=== PATIENT | female | born 1990 | race Caucasian/White ===

== ENCOUNTER 2022-09-05 08:49 | Emergency (ER) | payer SELFPAY ==
[2022-09-05] MEDS ORDERED: Iopamidol 300 61% 100 ML VIAL FS ONE (09:12)
[2022-09-05 10:55] LABS: #Eosinphils 0.1 10x3/uL (0.0-0.5); #Monocytes 0.6 10x3/uL (0.0-1.1); #Neutrophils 7.9 10x3/uL (1.5-8.4); %Basophils 0.4 % (0.0-2.0); %Eosinophils 1.1 % (0.0-6.0); %Lymphocytes 19.9 % (18.0-47.0); %Monocytes 5.8 % (0.0-10.0); %Neutrophils 72.3 % (40.0-75.0); Hemoglobin 14.5 g/dL (12.0-15.5); Mean Corpuscular HGB CONC 34.1 g/dL (32.0-36.0); Mean Corpuscular Volume 90.8 fl (81.6-98.3); Mean Platelet Volume 11.1 fl (7.4-10.4); Platelet Count 250 10x3/uL (150-450); RBC Distribution Width 11.4 % (11.5-14.5); Red Blood Cell (RBC) Count 4.68 10x6/uL (3.90-5.03); White Blood Cell (WBC) Count 10.9 10x3/uL (3.5-10.5)
[2022-09-05 11:00] LABS: Bilirubin Neg (Negative); Blood, Urine 25 (Negative); Clarity Slightly Cloudy (Clear); Glucose, Urine (Dipstick) Normal (Negative); Ketone, Urine 5 mg/dL (Negative); Leukocyte Negative (Negative); Nitrite Negative (Negative); Protein, Urine (Dipstick) 15 mg/dl (Neg-Trace); Specific Gravity, Urine 1.015 (1.005-1.030); Urobilinogen Normal mg/dL (Less than 2); pH, Urine 6.5 (5.0-9.0)
[2022-09-05 11:04] LABS: Pregnancy Test - Urine (BHCG) Negative (Negative); Pregu Control Background? CLEAR/WHITE (CLR/WHITE); Pregu Control Bar Appear? YES (CONTROL BAR); Specific Gravity 1.015 (1.002-1.036)
[2022-09-05] MEDS ORDERED: Ondansetron PF 4 MG/2 ML Vial ONE (11:09)
[2022-09-05 11:10] LABS: Bacteria/HPF 1+ HPF (None Seen); Mucous/LPF 1+ LPF (<2+); RBC/HPF 0-3 HPF (0-3); WBC/HPF 0-3 HPF (0-3)
[2022-09-05] MEDS ORDERED: Morphine 10 MG/ML VIAL ONE (11:10)
[2022-09-05 11:18] LABS: ALT (SGPT) 22 U/L (8-55); AST (SGOT) 17 U/L (5-34); Albumin 4.4 g/dL (3.5-5.0); Alkaline Phosphatase 62 U/L (40-110); Anion Gap 14 mmol/L (10-20); BUN (Urea Nitrogen) 15 mg/dL (7.0-18.7); Bilirubin, Total 0.6 mg/dL (0.2-1.2); Calc. Creatinine Clearance 0 mL/min (70-130); Calcium 9.3 mg/dL (7.8-10.44); Carbon Dioxide 25 mmol/L (22-29); Chloride 103 mmol/L (98-107); Estimated GFR 94; Globulin 3.1 g/dL (2.4-3.5); Glucose 93 mg/dL (70-105); Lipase 17 U/L (8-78); Potassium 3.7 mmol/L (3.5-5.1); Protein, Total 7.5 g/dL (6.0-8.3); Sodium 138 mmol/L (136-145)
[2022-09-05] MEDS ORDERED: Piperacillin/Tazobactam 3.375 GM VIAL ONE (12:18)
== END 2022-09-05 13:11 ==
LOC: CSHERS 08:49
DX: K35.80 Unspecified acute appendicitis (principal)
CPT/HCPCS: 36415; 74177; 80053; 81003; 81015; 81025; 83690; 85025; 87086; 96365; 96375; J2270; J2405; J2543; Q9967

== ENCOUNTER 2024-03-21 10:05 | Outpatient (CLI) | payer OTHER | END 2024-03-21 10:06 | disposition home or self-care (01) | LOC: CSHULT 10:05 | PROVIDERS: ATTEND Family Medicine | DX: O26.851 Spotting complicating pregnancy, first trimester (principal); E28.2 Polycystic ovarian syndrome; N96 Recurrent pregnancy loss | CPT/HCPCS: 76856 ==

== ENCOUNTER 2024-03-21 11:18 | Emergency (ER) | payer SELFPAY ==
[2024-03-21 12:15] LABS: #Basophils 0.05 10x3/uL (0.0-0.2); #Monocytes 0.73 10x3/uL (0.0-1.1); %Basophils 0.4 % (0.0-2.0); %Eosinophils 0.8 % (0.0-6.0); %Lymphocytes 18.5 % (18.0-47.0); %Monocytes 5.7 % (0.0-10.0); Hemoglobin 14.4 g/dL (12.0-15.5); Mean Corpuscular HGB CONC 33.5 g/dL (32.0-36.0); Mean Corpuscular Hemoglobin 30.8 pg (27.0-33.0); Mean Corpuscular Volume 92.1 fL (81.6-98.3); Mean Platelet Volume 11.5 fL (7.4-10.4); Platelet Count 235 10x3/uL (150-450); RBC Distribution Width 11.8 % (11.5-14.5); Red Blood Cell (RBC) Count 4.67 10x6/uL (3.90-5.03); White Blood Cell (WBC) Count 12.8 10x3/uL (3.5-10.5)
[2024-03-21 12:23] LABS: PTT 28.6 sec (22.0-33.0); Prothrombin Time 10.7 sec (9.5-12.1)
[2024-03-21 12:25] LABS: ALT (SGPT) 23 U/L (8-55); AST (SGOT) 15 U/L (5-34); Albumin 4.2 g/dL (3.5-5.0); Alkaline Phosphatase 54 U/L (40-110); Anion Gap 15 mmol/L (10-20); BUN (Urea Nitrogen) 12 mg/dL (7.0-18.7); Bilirubin, Total 0.5 mg/dL (0.2-1.2); Calc. Creatinine Clearance 0 mL/min (70-130); Calcium 9.8 mg/dL (7.8-10.44); Carbon Dioxide 22 mmol/L (22-29); Chloride 105 mmol/L (98-107); Estimated GFR 95; Globulin 3.4 g/dL (2.4-3.5); Glucose 89 mg/dL (70-105); Potassium 4.1 mmol/L (3.5-5.1); Protein, Total 7.6 g/dL (6.0-8.3); Sodium 138 mmol/L (136-145)
== END 2024-03-21 13:07 | disposition home or self-care (01) ==
LOC: CSHERS 11:18
DX: O26.891 Other specified pregnancy related conditions, first trimester (principal); R19.09 Other intra-abdominal and pelvic swelling, mass and lump; Z3A.01 Less than 8 weeks gestation of pregnancy
CPT/HCPCS: 36415; 80053; 84702; 85025; 85610; 85730; 86850; 86900; 86901; 99284

== ENCOUNTER 2024-03-23 11:59 | Emergency (ER) | payer SELFPAY ==
[2024-03-23 14:04] LABS: Bilirubin Neg (Negative); Blood, Urine 10 (Negative); Clarity Clear (Clear); Glucose, Urine (Dipstick) Normal (Negative); Ketone, Urine Negative (Negative); Leukocyte Negative (Negative); Nitrite Negative (Negative); Protein, Urine (Dipstick) 15 mg/dl (Neg-Trace); Urobilinogen Normal mg/dL (Less than 2)
[2024-03-23 14:18] LABS: Bacteria/HPF Rare-Few HPF (None Seen); CAUTI Indications for Culture Pregnancy; RBC/HPF 0-3 HPF (0-3); WBC/HPF 0-3 HPF (0-3)
[2024-03-23 14:19] LABS: Urine Culture Reflex No No; Urine Culture Reflex Yes Yes
[2024-03-23] MEDS ORDERED: Bupivacaine HCl 0.5%/Epinephrine 1:200,000/PF 30 ml Vial ONE (17:48)
[2024-03-23] MEDS ORDERED: PROPOFOL 20 ML ONE (18:11)
[2024-03-23] MEDS ORDERED: fentaNYL 50 mcg/mL 1 mL Vial ONE ×2 (18:12→20:03)
[2024-03-23] MEDS ORDERED: Rocuronium Bromide 10 MG/ML (10ML VIAL) ONE (18:14)
[2024-03-23] MEDS ORDERED: Midazolam HCl 2 mg/2 ml Vial ONE (18:17)
[2024-03-23] MEDS ORDERED: Lidocaine 2% PF 5 ML VIAL ONE (18:19)
[2024-03-23] MEDS ORDERED: Methylene Blue 50 MG/10 ML AMPUL ONE (18:47)
[2024-03-23] MEDS ORDERED: Ketorolac Tromethamine 30 MG (1 mL) VIAL ONE (18:56)
[2024-03-23] MEDS ORDERED: Dexamethasone 20 MG/5 ML VIAL ONE (18:56)
[2024-03-23] MEDS ORDERED: Ondansetron PF 4 MG/2 ML Vial ONE ×2 (18:56→20:04)
[2024-03-23] MEDS ORDERED: traMADol HCl 50 MG TAB PO PRN (19:52)
[2024-03-23] MEDS ORDERED: Meperidine HCl/PF 25 MG (1 mL) VIAL ONE (19:58)
[2024-03-23] MEDS ORDERED: Lactated Ringer's 1,000 ML IV SCH (20:00)
[2024-03-23] MEDS ORDERED: Non-Formulary Medication 1 EACH PO PRN (20:10)
[2024-03-23] MEDS ORDERED: Promethazine HCl 25 MG/ML VIAL IM PRN (20:15)
[2024-03-23] MEDS ORDERED: Meperidine HCl/PF 25 MG/ML VIAL SLOW IVP PRN (20:15)
[2024-03-23] MEDS ORDERED: Ondansetron HCl/PF 4 MG/2 ML Vial IVP PRN (20:15)
[2024-03-23] MEDS ORDERED: oxyCODONE 5 MG TAB ONE (20:31)
[2024-03-23] MEDS ORDERED: Ketorolac Tromethamine 30 MG (1 mL) VIAL IVP SCH (23:59)
== END 2024-03-23 18:16 | disposition admitted as inpatient to this hospital (09) ==
LOC: CSHERS 11:59
DX: O00.90 Unspecified ectopic pregnancy without intrauterine pregnancy (principal)
CPT/HCPCS: 36415; 76856; 81001; 84702; 87086; 88305; J1100; J1885; J2175; J2250; J2405; J2704; J3010; J7120